=== PATIENT | female | born 1935 | race Caucasian/White ===

== ENCOUNTER 2017-03-04 10:39 | Day surgery (SDC) | payer MEDICARE, OTHER ==
[~2017-03-04 10:39] MED LIST: Lidocaine Topical 2% 30 mL Jelly ONE
[2017-03-13] MEDS ORDERED: RANI150T11 PO (14:35)
[2017-03-13] MEDS ORDERED: POLY17PO6 PO (14:35)
[2017-03-13] MEDS ORDERED: ONDA4TAB6 PO (14:35)
== END 2017-03-04 23:59 | disposition home or self-care (01) ==
LOC: END 10:39
PROVIDERS: ATTEND Surgery
DX: K44.9 Diaphragmatic hernia without obstruction or gangrene (principal)

== ENCOUNTER 2017-03-14 00:57 | Day surgery (SDC) | payer MEDICARE, OTHER ==
[2017-03-14] VITALS (21 sets, daily range): BP systolic 116–177; BP diastolic 51–81; PULSE 70–97; RESP 12–24; O2SAT 93–96
[~2017-03-14] VITALS: Ht 149.9 cm; Wt 60.9 kg
[~2017-03-14 00:57] MED LIST changes: -Lidocaine Topical 2% 30 mL Jelly ONE; +ONDA4TAB6 PO; +POLY17PO6 PO; +RANI150T11 PO
[2017-03-14 10:07] LABS: BASOPHILS % (AUTO) 0.2 % (0-3); EOSINOPHILS % (AUTO) 3.3 % (0-5); MONOCYTES % (AUTO) 12.8 % (4-12); Mean Corpuscular Hemoglobin 28.4 pg (27.0-35.0); NEUTROPHILS % (AUTO) 72.4 % (40-74); Platelet Count 190 bil/L (150-400)
[2017-03-14 10:25] LABS: INR 0.98 ratio
[2017-03-14] MEDS ORDERED: 0.9% Sodium Chloride 1,000 ML IV ONE (10:29)
[2017-03-14] MEDS ORDERED: ACET325T51 PO (10:39)
--- NOTE | 2017-03-14 10:40 | NUR ---
Admit ELLYN Admitted to [facility] 7 about 929. VSS though slightly hypertensive with SBP 177. States this is not bad for her. Tele SR with PVCs. Denies pain. See EMR for further info and assessment. IVs started and labs sent. Procedure and recovery reviewed and verbalizes understanding. Awaiting laborer steel handling.
[2017-03-14] MEDS ORDERED: Heparin 1,000 Unit/mL 10 mL Inj ONE (10:50)
[2017-03-14] MEDS ORDERED: Heparin 1,000 Units/500 mL NS Premix IV ONE (10:50)
[2017-03-14] MEDS ORDERED: Heparin 10,000 Unit/1,000 mL NS Premix IV ONE (10:50)
[2017-03-14] MEDS ORDERED: fentaNYL-PF 50 mCg/mL 2 mL Inj ONE (11:42)
[2017-03-14] MEDS ORDERED: hydrALAZINE 20 mg/mL Inj ONE (12:12)
[2017-03-14] MEDS ORDERED: 0.9% Sodium Chloride 250 ML IV PRN (12:47)
[2017-03-14] MEDS ORDERED: 0.9% Sodium Chloride 1,000 ML IV PRN (12:47)
[2017-03-14] MEDS ORDERED: HYDROcodone-APAP 5-325 mg Tablet PO PRN (12:50)
[2017-03-14] MEDS ORDERED: Atropine 1 mg/10 mL (Code) Syringe IVPUSH PRN (12:50)
[2017-03-14] MEDS: Ondansetron 2 mg/mL 2 mL Inj IVPUSH PRN ×2 (13:09→15:33)
[2017-03-14] MEDS ORDERED: Nitroglycerin 50,000 mcg/250 mL D5W Premix IV ONE (13:15)
--- NOTE | 2017-03-14 14:11 | NUR ---
Patient continues to have varying degrees of bilateral arm pain, jaw pain and abdominal pressure.Nitroglycerin infusion began and now titrated to [address] Mccoy is speaking with patient, cardiac surgeon to be contacted by Dr Mccoy and patient and daughter aware that patient needs bypass surgery.
--- NOTE | 2017-03-14 14:33 | NUR ---
Dr Mccoy has ordered right femoral ultrasound to r/o bleed, pt has feeling of pressure in abdomen is alsointermittent but she generally feels poorly.
--- NOTE | 2017-03-14 14:38 | NUR ---
pt reports now that abdominal pressure may be due to small BM's yesterday which were small. Ultrasound here to evaluate groin.
[2017-03-14] MEDS ORDERED: Heparin 25,000 Unit/500 mL 0.45% NS Premix IV ONE (14:50)
[2017-03-14] MEDS ORDERED: Heparin Protocol Boluses IVPUSH PRN (15:00)
[2017-03-14] MEDS ORDERED: Heparin 25,000 UNIT in 0.9% Sodium Chloride 475 ML IV SCH (15:05)
--- NOTE | 2017-03-14 15:41 | NUR ---
Patient's pain not alleviated with ntg iv, order for morphine obtained from Dr Mccoy and given to patient. I asked him to assess the patient as she continues to complain of abdominal discomfort, pressure, she is requesting zantac.I suggested pepcid IV to physician, he does not want her to have this at this time.He listened to her bowel sounds stating "she has bowel sounds, she does not have an ileus".
[2017-03-14] MEDS ORDERED: Famotidine 20 mg/50 mL NS Premix IV ONE (15:43)
--- NOTE | 2017-03-14 15:44 | NUR ---
Patient seems more comfortable now after iv morphine, small amount of emesis.Daughter remains at the bedside.
[2017-03-14] MEDS ORDERED: Famotidine Inj 20 MG in IV Premix 1 EACH IV ONE (15:50)
--- NOTE | 2017-03-14 16:28 | NUR ---
report called to Elizabeth Carrillo at [place], [place]. [facility] transport is here to take her to [facility].
--- NOTE | 2017-03-14 16:28 | DRSVH ---
PROCEDURE: US ABDOMEN, LIMITED ([id number]) INDICATIONS: Status post cardiac catheterization with possible retroperitoneal bleed. TECHNIQUE: Real-time focused scanning was performed of the abdomen and right inguinal region, with image documen tation. COMPARISON: None. FINDINGS: No free fluid demonstrated within the lower quadrants, pelvis, or flank regions. There is a large cy st measuring up to 11 cm extending inferiorly from the right kidney. Evaluation of the right inguinal region demonstrates no definite pseudoaneurysm or discrete hematoma. IMPRESSION: 1. No definite retroperitoneal hematoma demonstrated sonographically. If clinical concern persists, recommend further evaluation with CT. Dictated by: Tee Shipman M.D. on 03/14/2017 at 16:23 Approved by: Tee Shipman M.D. on 03/14/2017 at 16:26
--- NOTE | 2017-03-14 16:34 | DIS ---
[address] [address] DISCHARGE SUMMARY PATIENT: HARESH MYERS : 1935 MR#: [id number] ADMIT: 03/14/2017 JOB ID: [id number] DIS: 03/14/2017 DATE OF DISCHARGE: 03/14/2017 DIAGNOSES: 1. Three-vessel coronary artery disease. 2. Moderate mitral regurgitation. 3. 50% to 60% stenosis to the right internal carotid artery. 4. Paraesophageal hernia. 5. Hypertension. HOSPITAL COURSE: The patient was admitted to the hospital as outpatient for diagnostic coronary angiography. Patient is being evaluated for paraesophageal hernia by Dr. Chelsea Reilly. She was [place] preoperative risk stratification. She underwent echocardiogram as well as stress testing and carotid Doppler study. The stress test demonstrated large fixed perfusion defect involving the inferior, inferolateral wall with moderate sized melody-infarct ischemia. The post-stress ejection fraction was 31%. The echo showed moderate mitral regurgitation with estimated ejection fraction of 50%. The carotid Doppler study demonstrated moderate disease in the right internal carotid artery. The coronary angiography was performed which demonstrated diffusely calcified proximal LAD with an eccentric 90% stenosis noted. The first diagonal branch demonstrated diffuse disease. The left circumflex has a subtotal stenosis in the proximal segment but the distal left circumflex is filled by the left to left collaterals arising from the septal interactive media specialist. The right coronary artery is a dominant vessel. The ostium of the right coronary artery is completely occluded. The distal right coronary artery is filled by mature left to right collaterals. The posterolateral branch and PDA branches are identified. The retrograde filling is not seen beyond the distal right coronary artery just after the crux. The proximal, mid and distal segments of the right coronary artery are heavily diffusely calcified and completely occluded. Post procedure, the patient complained of symptoms of chest pains, jaw pains and right groin pain. The ultrasound was performed which demonstrated no hematoma. The nitroglycerin drip was started. The patient was receiving 70 mcg of nitroglycerin. She reported symptoms of chest pains, pain of both arms. After receiving nitroglycerin, her right arm pain subsided although she had lingering pain in the left arm. Given history of multivessel coronary artery disease and angina, I called Dr. Johnny Ruelas at [facility] who accepted the patient. After ruling out any hematoma in the groin and in the abdomen, IV heparin was initiated. Patient continued to be nauseated. IV Zofran was given as well. Patient was given IV Pepcid. The patient remained hemodynamically stable while she was in the hospital. Last pulse recorded was 82 beats per minute with a blood pressure 131/74. The patient is alert and oriented, and answered all the questions appropriately. The discharge packet includes copy of the angiogram, discharge summary, copies of the echocardiogram, carotid Doppler studies. ACCEPTING PHYSICIAN: Johnny Ruelas MD, FACS
--- NOTE | 2017-03-15 08:16 | CS94 ---
[address] [address] DIAGNOSTIC CARDIAC CATHETERIZATION PATIENT: HARESH MYERS : 1935 MR#: [id number] ADMIT: 03/14/2017 JOB ID: [id number] SERVICE DATE: 03/14/2017 INDICATION: Abnormal stress test. Preoperative evaluation for paraesophageal hernia. REQUESTING PHYSICIAN: Chelsea Reilly MD PROCEDURES: 1. Retrograde left heart catheterization. 2. Selective left and right coronary angiography. 3. Left ventricular hemodynamics. CONSENT: The patient was explained the risks, benefits, and alternatives of the procedure. Informed signed consent was obtained and placed in the chart. DESCRIPTION OF PROCEDURE: The patient was brought to the cath laboratory and placed in the cath table. Both groins were prepped and draped in the usual sterile manner. Lidocaine 1% was infiltrated in the right groin area to achieve topical anesthesia. Subsequently, a micropuncture needle was used to access the right femoral artery. Using standard technique, a long 25 cm sheath was placed in the right femoral artery. The FL4 catheter was advanced over the guidewire, and the tortuous course of the aorta was observed. The left main coronary artery was cannulated with the FL4 catheter. Multiple views of left coronary artery were obtained in multiple projections. An FR4 catheter was used to engage the right coronary artery, and two views of the right coronary artery were obtained in multiple projections. Subsequently, a pigtail catheter was advanced over the guidewire, placed in the left ventricle, and left ventricular hemodynamics was obtained. Left ventricular cineangiography was not performed. TOTAL FLUOROSCOPY TIME: 10.1 minutes. TOTAL CONTRAST USED: 100 cc. FINDINGS: The left main coronary artery is diffusely calcified with an eccentric plaque noted in the mid body of the left main coronary artery. It bifurcates into left anterior descending artery and left circumflex coronary artery. The left anterior descending artery is diffusely heavily calcified in the proximal segment. It has an eccentric plaque with approximately 80% to 90% stenosis noted. The first diagonal branch demonstrates diffuse disease of 60% to 70% severity. The mid and distal LAD does not demonstrate any significant stenosis. Luminal irregularities are noted. The left circumflex coronary artery is a small vessel which is subtotally occluded in the proximal segment. Bridging collaterals were noted. Also, the distal left circumflex is filled by [id number] collaterals arising from the septal senior cytogenetic technologist branches. Mature collaterals noted also filling from left to right side in the distal right coronary artery. The right coronary artery is very heavily diffusely calcified and is occluded at the ostium. The mature collaterals fills the PDA and posterolateral branch. The of the right coronary artery is absent beyond the proximal to the distal RCA just before the crux of the right coronary artery. The left ventricular end-diastolic pressure is elevated at 30 mmHg. IMPRESSION: 1. Severe three-vessel coronary artery disease, 80% to 90% stenosis noted in the proximal left anterior descending. 2. Subtotal stenosis of the proximal left circumflex coronary artery. 3. Chronic total occlusion of the right coronary artery. 4. Mature left to left collaterals and left to right collaterals. 5. Elevated left ventricular end-diastolic pressure. Given multivessel coronary artery disease, she was referred for coronary artery bypass surgery and transferred to [facility]. Accepting physician, Dr. Johnny Ruelas. COMPLICATION: None.
== END 2017-03-14 23:59 | disposition short-term general hospital (02) ==
LOC: SOUO 00:57
PROVIDERS: ATTEND Internal Medicine Cardiovascular Disease
DX: I25.119 Atherosclerotic heart disease of native coronary artery with unspecified angina pectoris (principal); I25.84 Coronary atherosclerosis due to calcified coronary lesion; I25.82 Chronic total occlusion of coronary artery; I34.0 Nonrheumatic mitral (valve) insufficiency; K44.9 Diaphragmatic hernia without obstruction or gangrene; I65.21 Occlusion and stenosis of right carotid artery; I10 Essential (primary) hypertension; R68.84 Jaw pain; R07.9 Chest pain, unspecified; R10.31 Right lower quadrant pain
CPT/HCPCS: 36415; 76705; 80048; 85025; 85610; 85730; 93005; 93458; 99152; 99153; C1769; J0360; J1644; J2250; J2270; J2405; J3010; J3490; J7040; Q9967